=== PATIENT | male | born 1970 | race Caucasian/White ===

== ENCOUNTER 2022-09-29 13:36 | Outpatient (CLI) | payer BC, SELFPAY ==
--- NOTE | ~2022-09-29 | XR_ITS ---
Supine views of the abdomen Clinical history: Hematuria Findings: Bowel gas pattern is nonspecific. No evidence for obstruction or free air. The small calcification in the left upper quadrant, possibly a small stone at the left renal pelvis o r proximal ureter versus bowel contents. Osseous structures are intact. Impression: Questionable small stone at the left renal pelvis or proximal left ureter versus bowel contents or ot her soft tissue calcification. Reviewed, dictated and finalized at location . Impression: Questionable small stone at the left renal pelvis or proximal left ureter versu s bowel contents or other soft tissue calcification.
--- NOTE | ~2022-09-29 | CT_ITS ---
CT of the Abdomen and Pelvis: Indication: Hematuria Technique: 2.5 mm axial scans were obtained through the abdomen and pelvis prior to and following in travenous administration of 130 cc of Omnipaque 350. Dose reduction technique was used on this scan b y utilizing automated exposure control and iterative reconstruction technique. The dose-length produc t (DLP) was 3585.27 mGy-cm. Findings: Scans through the lung bases demonstrate a large calcified right lower lobe granuloma. The liver, spleen, pancreas, gallbladder, adrenals and kidneys are within normal limits. No evidence of aortic aneurysm. No lymphadenopathy. There are atherosclerotic calcifications of the aorta. No bowel obstruction or bowel wall thickening. There is no evidence to suggest acute appendicitis. Images through the pelvis were performed. Urinary bladder unremarkable. Prostate gland and seminal ve sicles are unremarkable. No ascites. Impression: No significant abnormalities seen. No etiology for hematuria identified. Reviewed, dictated and finalized at [facility]. Impression: No significant abnormalities seen. No etiology for hematuria identified.
[2022-09-29 14:30] LABS: Estimated Glomerular Filt Rate > 60
== END 2022-09-29 13:37 | disposition home or self-care (01) ==
PROVIDERS: PCP Nurse Practitioner Family; Visit Provider Nurse Practitioner Adult Health
DX: R31.9 Hematuria, unspecified (principal)
CPT/HCPCS: 74018; 74178; Q9967